=== PATIENT | female | born 2005 | race African-American/Black ===

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

== ENCOUNTER 2025-02-27 23:19 | Emergency (ER) | payer MEDICAID, SELFPAY ==
--- NOTE | 2025-02-27 23:24 | HMH.EDGENADL ---
Discharge Plan Disposition Patient Disposition: Home, Self-Care Prescriptions Prescriptions: No Action metformin 500 mg tablet 500 mg PO DAILY Qty: 30 2RF norelgestromin-ethin.estradiol [Zafemy] 150-35 mcg/24 hr patch weekly See Rx Instructions .ROUTE .COMPLEX Qty: 3 3RF Dose Instruction: APPLY 1 PATCH TOPICALLY ONCE A WEEK FOR 3 WEEKS OF A 4 WEEK CYCLE Rx Instructions: APPLY 1 PATCH TOPICALLY ONCE A WEEK FOR 3 WEEKS OF A 4 WEEK CYCLE ondansetron 4 mg tablet,disintegrating 4 mg PO Q6H PRN (Reason: nausea and vomiting) Qty: 10 0RF methocarbamol 750 mg tablet 750 mg PO Q6H PRN (Reason: spasm) Qty: 90 0RF lidocaine 5 % adhesive patch,medicated 1 patch topical DAILY Qty: 15 0RF Rx Instructions: leave on most painful area for up to 12 hrs Referrals Follow up/Referrals: Provider,Referral, MD [Primary Care Provider, Medical] - See instructions Activity Restrictions/Add. Instructions Additional Instructions/Restrictions: Please follow-up with your primary care provider. Please return to the emergency department if you develop any new or worsening symptoms or become concerned for your health. Clinical Impressions Clinical Impression: LAD (lymphadenopathy), cervical, Acute sore throat Instructions Patient Instructions: DI for Neck Pain Print Language Print Language: Malay Discharge ED Provider: Isac Colbert General Adult HPI General Chief complaint: Neck Pain/Injury Stated complaint: swollen neck glands Time Seen by Provider: 02/27/25 23:24 History of Present Illness HPI narrative: 19-year-old female with history of prediabetes on metformin presents for swelling in the neck. She reports that she feels like she has had some lymph nodes pop up bilaterally under her chin. She denies any sore throat, does report some runny nose. She has not had this happen before. She denies any fever at home, myalgias, fatigue or other significant infectious symptoms. Related Data Previous Rx's ?Medication ?Instructions ?Recorded ondansetron 4 mg disintegrating 4 mg PO Q6H PRN nausea and 12/22/24 tablet vomiting #10 tabs lidocaine 5 % topical patch 1 patch topical DAILY #15 ea 12/24/24 methocarbamol 750 mg tablet 750 mg PO Q6H PRN spasm #90 tabs 12/24/24 norelgestromin 150 mcg-e.estradiol See Rx Instructions .Route 01/18/25 35 mcg/24 hr weekly transderm .COMPLEX #3 patches patch (Zafemy) metformin 500 mg tablet 500 mg PO DAILY #30 tabs 01/23/25 Allergies Allergy/AdvReac Type Severity Reaction Status Date / Time budesonide (From Pulmicort) Allergy Intermediate Hives Verified 01/23/25 13:07 [facility] Disclaimer: The information contained in this section may have been updated after the patient was seen, as this information can be updated by other users. Medical History History of depression History of anxiety History of ADHD History of asthma Surgical History History of tonsillectomy and adenoidectomy Family History Other Asthma Diabetes Heart attack Hypertension Stroke Social History Smoking Status: Never smoker alcohol intake: never current occupational status: student Travel in the last 8 weeks?: None Have you lived/traveled outside [place] in past 30 days?: No Contact w/someone who lives/traveled outside US past 30 days?: No Exposure to someone with infectious disease in past 14 days?: No Do you have a fever (greater than 100.4 F or 38 C)?: No Have you tested positive for COVID-19?: No Exposed to someone with COVID-19 in past 14 days?: No Do you have a sore throat?: No Do you have a cough?: No Do you have any weakness?: No Do you have any diarrhea?: No Are you experiencing any unusual bleeding?: No Do you have any muscle aches/pain?: No Do you have any abdominal pain?: No Are you experiencing loss of taste or smell?: No ROS Obtained: Yes All systems reviewed & no additional complaints except as documented Physical Exam General General appearance: alert and in no apparent distress Head Head exam: atraumatic and normocephalic Eye Eye exam: Present normal appearance, PERRL and EOMI ENT ENT exam: Present normal external ear exam; Absent normal oropharynx (Mild tonsillar erythema and subtle exudate) Neck Neck exam: Present full ROM and lymphadenopathy (Shotty bilateral anterior cervical lymphadenopathy) Chest Chest inspection: Present normal inspection and symmetric chest wall rise; Absent tenderness Respiratory Respiratory exam: Present normal lung sounds bilaterally; Absent respiratory distress Cardiovascular Cardiovascular exam: Present regular rate and normal rhythm Abdominal Exam Abdominal exam: Present soft; Absent distention, tenderness or guarding Extremities Exam Extremities exam: Present normal inspection; Absent edema or joint swelling Back Exam Back exam: Present normal inspection; Absent tenderness Neurological Exam Neurological exam: Present alert and oriented X3; Absent motor sensory deficit Psychiatric Psychiatric exam: Present normal affect and normal mood Skin Skin exam: Present warm, dry and normal color Lymphatic Lymphatic Findings: no adenopathy Medical Decision Making Medical Records Medical records reviewed: Yes I reviewed the patient's medical records. Screening: Per USPSTF and CDC recommendations, given the prevalence of disease in our region, it is our hospital?s policy to screen for HIV and viral Hepatitis for all patients aged 18 and over and those with ongoing risk factors. Von Inquiry Pt receiving controlled substance: No Von was queried for this patient: No Vital Signs: 02/27/25 23:29 02/28/25 00:04 Temperature 98.9 F 98.5 F Temperature Source Oral Oral Pulse Rate 89 Pulse Rate [Right] 87 Respiratory Rate 17 16 Blood Pressure 106/67 L Blood Pressure [Right Arm] 158/89 H Blood Pressure Mean [Right Arm] 112 Blood Pressure Source Automatic Cuff Blood Pressure Source [Right Arm] Automatic Cuff Blood Pressure Position Sitting Blood Pressure Position [Right Arm] Sitting 02 Sat by Pulse Oximetry 97 Oxygen Delivery Method Room Air Room Air Lab Data Lab results reviewed: Yes I reviewed the patient's lab results. Lab Results 02/27/25 23:21: Group A Strep Rapid Negative Orders (Tests/Meds): ED MEDICATIONS Discontinued Medications Generic Name Dose Route Start Last Admin Trade Name Freq PRN Reason Stop Dose Admin Acetaminophen 1,000 mg 02/27/25 23:40 02/28/25 00:08 Acetaminophen 500mg Tab PO 02/27/25 23:41 1,000 mg ONCE ONE Administration ORDERS Category Date Time Status Strep Scrn Group A (Rapid) Stat Lab 02/27/25 23:21 Completed Strep Screen Confirmation Stat Micro 02/27/25 23:21 Received Medical Decision Narrative: 19-year-old female without significant past medical history presents for a few days of lumps in the anterior neck.. History was obtained via interactive discussion with patient. On arrival, patient is [afebrile, hemodynamically stable, satting appropriately, alert, oriented x4, GCS 15], moving all extremities spontaneously. Full physical exam performed and significant for mild shotty bilateral anterior cervical lymphadenopathy, faint tonsillar erythema and exudate. Differential includes but is not limited to URI, strep throat, lymphadenitis, thyroid abnormality. Patient was given Tylenol for symptomatic management and correction of underlying abnormalities. Workup initiated including strep swab. On re-evaluation, patient [remains afebrile, HD stable.] Laboratory workup independently interpreted by me and significant for negative strep swab. Blood work and imaging was considered, but deemed unnecessary due to likely reactive lymphadenopathy from viral illness. Patient was discharged in stable condition with return precautions.. Procedures Risk/Benefits of Procedure(s) Were Explained: Yes Critical Care Critical Care Time Critical Care Time: No
[2025-02-27 23:29] VITALS: BP 158/89; PULSE 87; RESP 17; TEMP 37.2; O2SAT 97; BMI 28.4
[2025-02-27 23:54] LABS: Strep Scrn Group A (Rapid) Negative (Negative)
[2025-02-28 00:04] VITALS: BP 106/67; PULSE 89; RESP 16; TEMP 36.9; O2SAT 98
[2025-02-28] MEDS: ACETAMINOPHEN 500MG TAB 1000 MG PO (00:08)
== END 2025-02-28 00:09 | disposition home or self-care (01) ==
PROVIDERS: Emergency Provider Emergency Medicine
DX: R59.0 Localized enlarged lymph nodes (principal); J02.9 Acute pharyngitis, unspecified
CPT/HCPCS: 87430; 99283

== ENCOUNTER 2025-06-16 16:04 | Emergency (ER) | payer MEDICAID, SELFPAY ==
[2025-06-16 16:06] VITALS: BP 128/70; PULSE 80; RESP 20; TEMP 37; O2SAT 100; BMI 45.1
--- OUTSIDE RECORDS SUMMARY | 2025-06-16 16:12 | XMS_ITS ---
Author Organization Unknown ENCOUNTERS Encounter Performer Location Date Diagnosis Diagnosis Status Pre Admit [facility] [address] [place] [address] [id number] Emergency [facility] [address] [place] [address] [id number] Emergency [facility] [address] [place] [address] [id number] ANDREI Pre Admit [facility] [address] [place] [address] [id number] Emergency [facility] [address] [place] [address] [id number] ANDREI Pre Admit [facility] [address] [place] [address] [id number] Pre Admit [facility] [address] [place] [address] [id number] Emergency [facility] [address] [place] [address] [id number] ANDREI Emergency [facility] [address] [place] [address] [id number] ANDREI Pre Admit [facility] [address] [place] [address] [id number] Pre Admit [facility] [address] [place] [address] [id number] Emergency [facility] [address] [place] [address] [id number] ANDREI Emergency [facility] [address] [place] [address] [id number] ANDREI Pre Admit Kelli Javi [facility] [address] [place] [address] [id number] Emergency [facility] [address] [place] [address] [id number] ANDREI Pre Admit [place] [address] [place] [address] [phone] *Note: Encounters from your own facility or health system may be excluded. Allergies, Adverse Reactions, Alerts Allergen Type Severity Identification Date budesonide drug allergy 3 [id number] Medications Name Date Quantity Days Supplied [facility] Number
--- OUTSIDE RECORDS SUMMARY | 2025-06-16 16:12 | XMS_ITS | Clinical Summary ---
Author Organization [facility] Address [address] [phone] Phone Care Team Providers Care Coal Deliverer Name Role Phone Samira Daigle APRN Primary Care Physician [phone] Conditions or Problems Problem Name Problem Code Onset Date Status Entry Date Provider Comment Standard Description Annotate Body mass index (BMI) pediatric; greater than or equal to 95th percentile for age Z68.54 (ICD-10-CM) 02/21 Active 02/21 Samira Daigle APRN Body mass index [BMI] pediatric, 95th percentile for age to less than 120% of the 95th percentile for age Body mass index (BMI) pediatric; greater than or equal to 95th percentile for age Z68.54 (ICD-10-CM) Correction Samira Daigle APRN Body mass index [BMI] pediatric, 95th percentile for age to less than 120% of the 95th percentile for age Snoring 56125613 (SNOMED CT) 02/21 Inactive 02/21 Samira Daigle APRN Snoring Asthma 090143814 (SNOMED CT) 02/21 Active 02/21 Samira Daigle APRN Asthma Preventive health care, adult 271958479 (SNOMED CT) 02/21 Inactive 02/21 Samira Daigle APRN Screening - health check Prediabetes 173173947 (SNOMED CT) 02/21 Active 02/21 Samira Daigle APRN Prediabetes Body mass index (BMI) pediatric; 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 Allergies, Adverse Reactions, Alerts Allergy Name Reaction Description Start Date Severity Statu s Provider PULMACORT Critical Active Fay morris MD Results Date Name Value Unit Range Flag Description Office Visit: 5 LABS ORDERED Test 07778 Laboratory tests ordered PREG TST URN negative beta HC G, urine, semiquantitative Lab Report: LIPID PANEL WITH REFLEX TO DIRECT LDL, COMPREHENSIVE METABOL ... HGBA1C 5.8 % <5.7 H Hemoglobin A1c/Hemoglobin, total in Blood - % SGPT (ALT) 10 U/L 5-32 N Alanine aminotransferase [Enzymatic activity/volume] in Serum or Plasma SGOT (AST) 13 U/L 12-32 N Aspartate aminotransferase [Enzymatic activity/volume] in Serum or Plasma ALK PHOS 62 U/L 36-128 N Alkaline jose sphatase [Enzymatic activity/volume] in Blood BILI TOTAL 0.4 mg/dL 0.2-1.1 N Bilirubin. total [Mass/volume] in Serum or Plasma A/G RATIO 1.4 (calc) 1.0-2.5 N Albumin/ Globulin [Mass Ratio] in Serum or Plasma GLOBULIN TOT 3.1 G/DL (CALC) g/dL 2.0-3.8 N Globulin [Mass/volume] in Serum ALBUMIN EOP 4.3 g/dL 3.6-5.1 N Albumin [Mass/volume] in Serum or Plasma by Electrophoresis PROTEIN, TOT 7.4 g/dL 6.3-8.2 N Protein [Mass/volume] in Serum or Plasma CALCIUM 9.4 mg/dL 8.9-10.4 N Calcium [Moles/volume] in Serum or Plasma CO2 26 mmol/L 20-32 N Carbon dioxid e, total [Moles/volume] in Venous blood CHLORIDE BLD 105 mmol/L 98-110 N chloride , blood POTASSIUM 4.6 mmol/L 3.8-5.1 N Potassium [Moles/volume] in Serum or Plasma SODIUM 137 mmol/L 135-146 N Sodium [Moles/volume] in Serum or Plasma BUN/CREAT SEE NOTE: (calc) 6-22 Urea nitrogen/Creatinine [Mass Ratio] in Serum or Plasma CREATININE 0.63 mg/dL 0.50-0.96 N Creatini ne [Mass/volume] in Serum or Plasma BUN 10 mg/dL 7-20 N Urea nitrogen [Mass/volume] in Serum or Plasma GLUCOSE SER 99 mg/dL 65-99 N Glucose [Mass/volume] in Serum or Plasma NON-HDL CHOL 175 MG/DL (CALC) mg/dL <120 H cholesterol, non-HDL, total CHOL/HDL % 5.1 (calc) <5.0 H cholest des/HDL ratio, serum, percent LDL 155 MG/DL (CALC) mg/dL <110 H Cholesterol in L DL [Mass/volume] in Serum or Plasma - mg/dL TRIGLYC TOT 92 mg/dL <90 H Triglycer gabi [Mass/volume] in Serum or Plasma - mg/dL HDL 43 mg/dL >45 L Cholesterol i n HDL [Mass/volume] in Serum or Plasma - mg/dL CHOLESTEROL 218 mg/dL <170 H Cholester ol [Mass/volume] in Serum or Plasma - mg/dL Plan of Care Type Date Detail Referral [facility], [address] [facility], [place], [address] Pending order T1 CMP Pending order T1 Lipid Panel Pending order T1 HGBA1c Pending order Test 8 1025 Pending order T1 G.C. Chlamydi a Pending Order exclud ed from report: Pending order Pelvic Ultrasoun d (non-) Pending Order exclud ed from report: Procedures Code Procedure Name Date Entry Date [facility]-[id number] Medication Reconciliation CPT-1159F Medication list docu mented in medical record CPT-1160F Review of all medica tions by a prescribing practitioner CPT-3074F Most recent systolic blood pressure <130 mm Hg CPT-3078F Most recent diastoli c blood pressure <80 mm Hg [facility]-[id number] Dietary management education/guidance/counseling [id number] Lifestyle education regarding diet 02/21 [id number] Never smoker [facility] 67967 T1 CMP [facility] 61126 T1 Lipid Panel [facility] 496 T1 HGBA1c [facility]-[id number] Medication Reconciliation CPT-3074F Most recent systolic blood pressure <130 mm Hg CPT-3078F Most recent diastoli c blood pressure <80 mm Hg CPT-1160F Review of all medica tions by a prescribing practitioner [facility] 57776 T1 G.C. Chlamydia PU Pelvic Ultrasound (non-) CPT-36625 Test 80853 [facility]-[id number] Never smoker Vital Signs Date Name Value Unit Description BMI (Body Mass Index) 46.23 kg/m2 Bod y Mass Index (Ratio) BP Diastolic 73 mm[Hg] blood pressu re, diastolic BP Systolic 108 mm[Hg] blood pressur e, systolic BSA (Body Surface Area) 2.68 b paulino surface area Height 70 [in_us] height E&M Height 177.8 cm height in cent imeters E&M Respiratory Rate 19 /min respirat ory rate E&M Weight Measured 321 [lb_av] weight E& M Weight Measured 321 [lb_av] weight E& M Weight Measured 145.91 kg weight in kilograms E&M Heart Rate 94 /min pulse rate Immunizations No information available. Advance Directives No information available.
--- OUTSIDE RECORDS SUMMARY | 2025-06-16 16:12 | XMS_ITS | Clinical Summary ---
Author Organization [facility] Address [address] [place] [address] Phone Care Team Providers Care Security And Compliance Analyst Name Role Phone Kayce Sanchez MD Primary Care Provider [phone] Allergies Active Allergy Reactions Criticality Noted Date Comments Budesonide Hives,Shortness Of Breath Medium Medications * This document contains information received from the source organization and may not represent a complete record from that organization. Nebulizer Accessories (A.I.R.S NEBULIZER REPLACEMENT) Kit by [facility] [place].(Non-Drug; Combo Route) route. use as directed 1 Kit 3 0 Active Inhalational Spacing Device [facility] [place] [facility] Spacer U*se every 4-6 hours as needed with Meter dosed inhaler 1 Device 7 Active ALBUTEROL INHL Inhale into the lungs. Active Diaper,Brief, Adult,Disposable [facility] USE DIRECTED INS BILLED 04 12/14/16 8 Active Benzoyl Peroxide (BENZAC AC) 10 % Top CleanserIndicati ons:Acne vulgaris Wash face daily 187 g 1 8 Active Additional Information Patient not taking.Reason: Therapy Completed, Reported on 07/14/2022 traZODone (DESYREL) 100 mg Oral Tablet Take 100 mg by mouth nightly. Active methylphenidate HCl (CONCERTA) 36 mg Oral Tablet Extended Rel 24 hr TK 2 TS PO QAM 0 9 Active omeprazole (PRILOSEC OTC) 20 mg Oral Tablet, Delayed Release (E.C.)Indication s:Abdominal pain in child Take 1 Tab by mouth daily. 30 Tab 2 0 Active Additional Information Patient not taking.Reason: Other, Reported on 08/26/2021 ondansetron (ZOFRAN-ODT) 4 mg Oral Tablet, Rapid Dissolve Take 1 Tab by mouth every 8 hours as needed for Nausea. 10 Tab 0 Active Additional Information Patient not taking.Reason: Other, Reported on 08/26/2021 albuterol (VENTOLIN HFA) 90 mcg/actuation Inhl HFA Aerosol InhalerIndicatio ns:History of asthma Inhale 6 Puffs into the lungs every 4 hours as needed. for wheezing or shortness of breath 18 g 2 3 Active SUMAtriptan (IMITREX) 25 mg Oral TabletIndication s:Migraine without aura and with status migrainosus, not intractable Take 1 PO. If not better in 2 hours, may take second dose. No more than 2 doses in 24 hours. 6 Tablet 3 Active Additional Information Patient not taking.Reason: Therapy Completed, Reported on 04/04/2023 tretinoin (RETIN-A) 0.025 % Top CreamIndications :Acne vulgaris Apply topically nightly. Apply topically nightly 20 g 1 3 Active ADDERALL XR 30 mg Oral Capsule, Sust. Release 24 hr Take 30 mg by mouth daily. 3 Active clonazePAM (KLONOPIN) 0.5 mg Oral Tablet Take 0.5 mg by mouth 3 times daily as needed. 3 Active tamsulosin (FLOMAX) 0.4 mg Oral Capsule Take 0.4 mg by mouth. 8 Active sertraline (ZOLOFT) 100 mg Oral Tablet 3 Active prazosin (MINIPRESS) 1 mg Oral Capsule 3 Active polyethylene glycol (GLYCOLAX) 17 gram/dose Oral Powder Take 17 g by mouth. 4 Active buPROPion (WELLBUTRIN SR) 150 mg Oral tablet sustained-releas e 12 hr 3 Active clotrimazole (LOTRIMIN) 1 % Top CreamIndications :Chronic eczematous otitis externa of both ears Apply small amount two times daily for two weeks 24 g 3 Active Active Problems Patient Care Coordination No te Formatting of this note migh t be different from the original. Registry updated HCC audit completed by Nancie Porter RN on 10/01/2022. Problem Noted Date Diagnosed Date ADD (attention deficit disorder) 07/22/2018 Increased sleeping 09/29/2017 Family history of sudden in father 016 Chest pain, non-cardiac 02/18/2016 Acanthosis nigricans 06/10/2015 Overview (06/10/2015): Seen [facility] Obesity due to excess calories 06/10/2015 Overview (06/10/2015): Seen at [facility] Dyslipidemia 06/10/2015 Overview (06/10/2015): Seen at [facility] Urge incontinence 10/12/2013 Migraine 09/08/2013 Overview (09/08/2013): MRI normal 08/2013 Eczema 10/10/2012 Nocturnal enuresis 04/22/2012 Asthma 09/16/2010 Resolved Problems Problem Noted Date Diagnosed Date Resolved Date Pneumonia 09/16/2010 08/17/2012 Immunizations Immunization Administration Dates Next Due DTaP 08/12/2009, 7,01/09/2006,11/09,2005 DTaP/IPV 08/12/2009 H1N1, Unspecified Formulation 03/25/2012 HPV 9 Valent 07/15/2017,07/03/2016 Hep B/HiB 07/16/2006,2005,2005 Hepatitis A, Unspecified Formulation 07/19/2007, 07/13/2006 IPV 03/10/2007,2005,2005 Influenza Vaccine, Unspecifi ed Formulation 03/30/2012 LAST MANUFACTURED 2010-Pneum ococcal Conjugate 7 Valent 03/10/2007,01/09/2006,2005,09/07 MMR 08/12/2009,07/16/2006 Meningococcal Conjugate 08/26/2021,07/03/2016 Tdap 07/03/2016 Varicella 08/12/2009,07/16/2006 Surgical History Surgery Date Site/Laterality Comments DENTAL SURGERY ADENOIDECTOMY Medical History Medical History Date Comments Behavioral disorder Asthma Heart murmur Eczema Pneumonia 09/16/2010 Incontinence Speech delay ADHD (attention deficit hyperactivity disorder) Anxiety Depression Family History Medical History Relation Name Comments High Blood Pressure Mother High Cholesterol Mother Other Sister eczema Relation Name Status Comments Mother Alive Sister Alive Social History Tobacco Use Types Packs/Day Years Used Date Smoking Tobacco: Never Smokeless Tobacco: Never Tobacco Cessation:Counseling Given: Not Answered Alcohol Use Standard Drinks/Week Comments No 0 (1 standard drink = 0.6 oz pur e alcohol) Sexually Active Control Partners Comments Never Comments No Sex and Gender Information Value Date Recorded Sex Assigned at Not on file Legal Sex Female 7:55 AM EDT Gender Identity Not on file Sexual Orientation Not on file Growth Chart Information Age Height Weight [id number] th Percentile BMI Percentile Head Circum Head Circum Percentile Date 18 years 180.3 cm (5' 11 ) 136.1 kg (300 lb) 99.43%* 2023 17 years 180.3 cm (5' 11 ) 136.3 kg (300 lb 6.4 oz) 99.50%* 2022 17 years 180.3 cm (5' 11 ) 137.7 kg (303 lb 9.6 oz) 99.58%* 2022 17 years 177.8 cm (5' 10 ) 134.9 kg (297 lb 6.4 oz) 99.66%* 2022 17 years 177.8 cm (5' 10 ) 133.8 kg (295 lb) 99.65%* 2022 17 years 175.3 cm (5' 9 ) 132.2 kg (291 lb 8 oz) 99.75%* 2022 16 years 177.8 cm (5' 10 ) 124.7 kg (275 lb) 99.27%* 2021 16 years 175.3 cm (5' 9 ) 129.3 kg (285 lb) 99.78%* 2021 15 years 172.7 cm (5' 8 ) 117.9 kg (260 lb) 99.68%* 2020 14 years 117.3 kg (258 lb 9.6 oz) 2019 14 years 116.4 kg (256 lb 9.6 oz) 2019 14 years 116.6 kg (257 lb) 2019 14 years 177.8 cm (5' 10 ) 99.8 kg (220 lb) 97.28%* 2019 14 years 175.3 cm (5' 9 ) 108.9 kg (240 lb) 99.17%* 2019 14 years 171.5 cm (5' 7.5 ) 106.4 kg (234 lb 9.6 oz) 99.38%* 2019 14 years 175.3 cm (5' 9 ) 107 kg (236 lb) 99.04%* 2019 13 years 107.3 kg (236 lb 9.6 oz) 2019 13 years 175.3 cm (5' 9 ) 108 kg (238 lb) 99.18%* 2018 13 years 107 kg (236 lb) 2018 13 years 108 kg (238 lb) 2018 13 years 107.6 kg (237 lb 3.2 oz) 2018 13 years 107.5 kg (237 lb) 2018 13 years 177.8 cm (5' 10 ) 96.2 kg (212 lb) 97.30%* 2018 13 years 105.7 kg (233 lb) 2018 13 years 172.7 cm (5' 8 ) 99.8 kg (220 lb) 98.82%* 2018 13 years 97.1 kg (214 lb) 2018 13 years 98.2 kg (216 lb 6.4 oz) 2018 13 years 170.7 cm (5' 7.2 ) 101.2 kg (223 lb 3.2 oz) 99.38%* 2018 12 years 98 kg (216 lb) 2017 12 years 172.7 cm (5' 8 ) 81.6 kg (180 lb) 96.10%* 2017 12 years 83.5 kg (184 lb) 2017 12 years 167.6 cm (5' 6 ) 80.7 kg (178 lb) 97.52%* 2017 12 years 169 cm (5' 6.54 ) 83.8 kg (184 lb 12.8 oz) 97.89%* 2017 11 years 170.2 cm (5' 7 ) 80.7 kg (178 lb) 96.99%* 2017 11 years 80.7 kg (178 lb) 2016 11 years 78.7 kg (173 lb 6.4 oz) 2016 11 years 73 kg (161 lb) 2016 11 years 160 cm (5' 3 ) 69.9 kg (154 lb) 97.32%* 2016 10 years 160 cm (5' 3 ) 67.8 kg (149 lb 6 oz) 96.91%* 2016 10 years 67.6 kg (149 lb) 2015 10 years 64.9 kg (143 lb) 2015 10 years 152.4 cm (5') 62.6 kg (138 lb) 97.73%* 2015 10 years 60.6 kg (133 lb 9.6 oz) 2015 10 years 59.9 kg (132 lb) 2015 9 years 59.4 kg (131 lb) 2014 9 years 57.6 kg (127 lb) 2014 9 years 151.1 cm (4' 11.5 ) 59.5 kg (131 lb 3.2 oz) 97.94%* 2014 9 years 54.2 kg (119 lb 6.4 oz) 2014 9 years 149.9 cm (4' 11 ) 55.1 kg (121 lb 6.4 oz) 97.23%* 2014 9 years 53.2 kg (117 lb 3.2 oz) 2014 8 years 44.7 kg (98 lb 8 oz) 2013 8 years 139.7 cm (4' 7 ) 44 kg (97 lb) 96.91%* 2013 7 years 38.6 kg (85 lb 3.2 oz) 2012 7 years 36.1 kg (79 lb 8 oz) 2012 6 years 33.8 kg (74 lb 9.6 oz) 2011 6 years 34 kg (75 lb) 2011 6 years 33.3 kg (73 lb 6 oz) 2011 6 years 33.1 kg (73 lb) 2011 6 years 32.7 kg (72 lb) 2011 6 years 29.6 kg (65 lb 4 oz) 2011 6 years 29.3 kg (64 lb 8 oz) 2011 6 years 28.6 kg (63 lb) 2011 6 years 125.7 cm (4' 1.5 ) 29.3 kg (64 lb 11.2 oz) 94.24%* 2011 5 years 28.3 kg (62 lb 6.4 oz) 2010 5 years 29 kg (63 lb 14.4 oz) 2010 5 years 22 kg (48 lb 6.4 oz) 2010 5 years 21.8 kg (48 lb 1 oz) 2010 5 years 118.1 cm (3' 10.5 ) 21.3 kg (47 lb 1 oz) 46.58%* 54.53%* 2010 4 years 21 kg (46 lb 4 oz) 2009 4 years 111.1 cm (3' 7.75 ) 19 kg (41 lb 12.8 oz) 51.83%* 52.10%* 2009 2 years 90.2 cm (2' 11.5 ) 13.2 kg (29 lb) 54.83%* 43.56%* 2007 * CDC (Girls, 2-20 Years) Last Filed Vital Signs Vital Sign Reading Time Taken Comments Blood Pressure 137/70 09/20/2023 4:05 PM EDT Pulse 65 09/20/2023 4:05 PM EDT Temperature 36.6 C (97.8 F) 09/20/2023 4:04 PM EDT Respiratory Rate 16 09/20/2023 2:21 PM EDT Oxygen Saturation 100% 09/20/2023 4:05 PM EDT Inhaled Oxygen Concentration - - Weight 136.1 kg (300 lb) 09/20/2023 4:05 PM EDT Height 180.3 cm (5' 11 ) 09/20/2023 4:05 PM EDT Body Mass Index 41.84 09/20/2023 4:05 PM EDT Body Mass Index Percentile 99.43% 09/20/2023 4:0 5 PM EDT Growth Chart: CDC (Girls, 2- 20 Years) Plan of Treatment Upcoming Encounters Date Type Department Care Team (Late st Contact Info) Description 07/23/2025 7:00 PM EST Appointment [facility] [address] [place] [id number] 08/07/2025 11:15 AM EST Office Visit [facility] Sleep Medicine [facility] [address] [facility] [address] [place] [address] Massimo Woody MD [address] [address] Health Maintenance Due Date Last Done Comments Meningococcal B Vaccine (1 o f 2 - Standard) 2021 Annual Wellness Exam 07/14/2023 07/14/2022 Pneumococcal Vaccine 0-49 (1 of 2 - PCV) 2024 03/10/2007, 01/09/2006, 2005, Additional history exists COVID-19 Vaccine (1 - 2024-2 6 season) 2025 Influenza Vaccine (#1) 2025 03/30/2012 DTaP/TDaP/Td (7 - Td or Tdap) 07/03/2026, 08/12/2009, 08/12/2009, Additional history exists Hepatitis B Vaccine Completed 07/16/2006, 2005, 2005 HPV Completed 07/15/2017, 07/03/2016 Insurance [facility] [id number] [facility] [place] [id number] [employer] [facility] [place] [address] [facility] [place] [address] [facility] [id number] [facility] Care Teams Security And Compliance Analyst Relationship Specialty Start Date End Date Kayce Sanchez MD [address] [facility] [address] [place] [address] PCP - General Pediatrics 05/06/11
--- NOTE | 2025-06-16 16:24 | CT_ITS ---
PROCEDURE INFORMATION: Exam: CT Lumbar Spine Without Contrast Exam date and time: 06/16/2025 4:48 PM Age: 19 years old Clinical indication: Low back pain; Additional info: Pain from lifting TECHNIQUE: Imaging protocol: Computed tomography of the lumbar spine without contrast. Radiation optimization: All CT scans at this facility use at least one of these dose optimization techniques: automated exposure control; mA and/or kV adjustment per patient size (includes targeted exams where dose is matched to clinical indication); or iterative reconstruction. COMPARISON: CT ANGIO ABDOMEN PELVIS 12/24/2024 7:10 PM FINDINGS: Bones/joints: Spine alignment is normal. No fracture or bone destruction. There is an 8 mm disc protrusion at L5-S1 image 1002/51. Soft tissues: Unremarkable. IMPRESSION: 1. Spine alignment is normal. 2. No fracture or bone destruction. 3. There is an 8 mm disc protrusion at L5-S1 image 1002/51. Recommend MRI to further delineate this finding.
[2025-06-16 16:28] VITALS: BP 128/74; PULSE 86; O2SAT 99
[2025-06-16 16:30] VITALS: BP 117/63; PULSE 82; O2SAT 97
--- NOTE | 2025-06-16 16:34 | ED_ITS ---
<Statement entered by Ej Aguirre MD - 06/17/25 11:18> Ej Aguirre MD: I was consulted by the JESSE, and we discussed the complexity of the problems being addressed. I approve the treatment and management plan for this patient's care in the emergency department, thus performing a substantive portion of the medical decision making. Discharge Plan Disposition Patient Disposition: Home, Self-Care Prescriptions Prescriptions: New methocarbamol 500 mg tablet 1,000 mg PO BID 14 Days Qty: 56 0RF ketorolac 10 mg tablet 10 mg PO Q8H PRN (Reason: pain) 5 Days Qty: 10 0RF No Action metformin 500 mg tablet 500 mg PO DAILY Qty: 30 2RF norelgestromin-ethin.estradiol [Zafemy] 150-35 mcg/24 hr patch weekly See Rx Instructions .ROUTE .COMPLEX Qty: 3 3RF Dose Instruction: APPLY 1 PATCH TOPICALLY ONCE A WEEK FOR 3 WEEKS OF A 4 WEEK CYCLE Rx Instructions: APPLY 1 PATCH TOPICALLY ONCE A WEEK FOR 3 WEEKS OF A 4 WEEK CYCLE ondansetron 4 mg tablet,disintegrating 4 mg PO Q6H PRN (Reason: nausea and vomiting) Qty: 10 0RF methocarbamol 750 mg tablet 750 mg PO Q6H PRN (Reason: spasm) Qty: 90 0RF lidocaine 5 % adhesive patch,medicated 1 patch topical DAILY Qty: 15 0RF Rx Instructions: leave on most painful area for up to 12 hrs Referrals Follow up/Referrals: [facility] [Other] - See instructions Provider,Referral, MD [Primary Care Provider, Medical] - See instructions Activity Restrictions/Add. Instructions Additional Instructions/Restrictions: Please call contact [facility] for an appointment with the spine doctor. You need to rest your back, no lifting pulling pushing tugging for the next 2 weeks. Please see your PCP as well. Use heat or ice. May take the ketorolac and Tylenol for pain. Clinical Impressions Clinical Impression: Strain of lumbar region Instructions Patient Instructions: DI for Low Back Pain Print Language Print Language: Arabic Discharge ED Provider: Ej Aguirre General Adult HPI General Chief complaint: Back Pain/Injury Stated complaint: lifted heavy object pain when breathing walking Time Seen by Provider: 06/16/25 16:18 Mode of Arrival: Ambulatory Source of Information: Patient and Relative Description of Symptoms (Recalled from ER Triage Doc. by RN): pt is here for back pain after a lifting injury while at work, pt states she is in contant pain during sitting stand or rest, it srats in mid back and goes down into both hips History of Present Illness HPI narrative: 19-year-old female presents to the ED today for complaint of hurting her back yesterday at work. She says this happened about 4:00 when she was trying to lift slushy containers. She says it hurts to do anything including stand, sit, walk or rest. She states that it hurts in her mid back and goes down to both hips. No numbness or tingling. No bowel or bladder changes. No other symptoms at this time. Related Data Previous Rx's ?Medication ?Instructions ?Recorded ondansetron 4 mg disintegrating 4 mg PO Q6H PRN nausea and 12/22/24 tablet vomiting #10 tabs lidocaine 5 % topical patch 1 patch topical DAILY #15 ea 12/24/24 methocarbamol 750 mg tablet 750 mg PO Q6H PRN spasm #9 0 tabs 12/24/24 norelgestromin 150 mcg-e.estradiol See Rx Instructions .Route 01/18/25 35 mcg/24 hr weekly transderm .COMPLEX #3 patches patch (Zafemy) metformin 500 mg tablet 500 mg PO DAILY #30 tabs 11/12 ketorolac 10 mg tablet 10 mg PO Q8H PRN pain 5 days #10 06/16/25 tabs methocarbamol 500 mg tablet 1,000 mg (2 x 500 mg) PO B ID 14 06/16/25 days #56 tabs Allergies Allergy/AdvReac Type Severity Reaction Status Date / Time budesonide (From Pulmicort) Allergy Intermediate Hives Verified 01/23/25 13:07 [facility] Disclaimer: The information contained in this section may have been updated after the patient was seen, as this information can be updated by other users. Medical History History of depression History of anxiety History of ADHD History of asthma Surgical History History of tonsillectomy and adenoidectomy Family History Other Asthma Diabetes Heart attack Hypertension Stroke Social History Smoking Status: Never smoker alcohol intake: never current occupational status: student Travel in the last 8 weeks?: None Have you lived/traveled outside US in past 30 days?: No Contact w/someone who lives/traveled outside US past 30 days?: No Exposure to someone with infectious disease in past 14 days?: No Do you have a fever (greater than 100.4 F or 38 C)?: No Have you tested positive for COVID-19?: No Exposed to someone with COVID-19 in past 14 days?: No Do you have a sore throat?: No Do you have a cough?: No Do you have any weakness?: No Do you have any diarrhea?: No Are you experiencing any unusual bleeding?: No Do you have any muscle aches/pain?: No Do you have any abdominal pain?: Yes Are you experiencing loss of taste or smell?: No ROS Obtained: Yes Systems reviewed as appropriate & no additional complaints except as documented Constitutional Constitutional: Reports as per HPI Physical Exam General General appearance: alert Head Head exam: normocephalic Eye Eye exam: Present EOMI ENT ENT exam: Present normal oropharynx and mucous membranes moist Neck Neck exam: Present full ROM and trachea midline Respiratory Respiratory exam: Present normal lung sounds bilaterally Cardiovascular Cardiovascular exam: Present regular rate, normal rhythm, +S1 and +S2 Abdominal Exam Abdominal exam: Present soft Extremities Exam Extremities exam: Present full ROM and normal capillary refill Back Exam Back exam: Present tenderness, muscle spasm and paraspinal tenderness (Lumbar) Neurological Exam Neurological exam: Present alert and oriented X3 Skin Skin exam: Present warm and dry Medical Decision Making Medical Records Screening: Per USPSTF and CDC recommendations, given the prevalence of disease in our region, it is our hospital?s policy to screen for HIV and viral Hepatitis for all patients aged 18 and over and those with ongoing risk factors. Von Inquiry Pt receiving controlled substance: No Von was queried for this patient: No Vital Signs: 06/16/25 16:06 06/16/25 16:28 06/16/25 16:30 Temperature 98.6 F Temperature Source Oral Pulse Rate 86 82 Pulse Rate [Left Radial] 80 Respiratory Rate 20 Blood Pressure 128/74 117/63 Blood Pressure [Right Arm] 128/70 Blood Pressure Mean Blood Pressure Mean [Right Arm] 89 02 Sat by Pulse Oximetry 100 99 97 Oxygen Delivery Method Room Air 06/16/25 18:01 Temperature Temperature Source Pulse Rate 75 Pulse Rate [Left Radial] Respiratory Rate 18 Blood Pressure 119/64 Blood Pressure [Right Arm] Blood Pressure Mean 79 Blood Pressure Mean [Right Arm] 02 Sat by Pulse Oximetry 100 Oxygen Delivery Method Lab Data Lab Results 06/16/25 16:20: Urine HCG, Qual Negative Orders (Tests/Meds): ED MEDICATIONS Discontinued Medications Generic Name Dose Route Start Last Admin Trade Name Tamq PRN Reason Stop Dose Admin Ketorolac Tromethamine 30 mg 06/16/25 16:44 06/16/25 16:53 Ketorolac 30mg/Ml Vial IM 06/16/25 16:45 30 mg ONCE ONE Administration Lidocaine 1 each 06/16/25 16:24 06/16/25 16:53 Lidocaine 5% Transdermal Patch TD 06/16/25 16:25 1 each ONCE ONE Administration Orphenadrine Citrate 60 mg 06/16/25 16:43 06/16/25 16:53 Orphenadrine Citrate 60mg/2ml Vial IM 06/16/25 16:44 60 mg ONCE ONE Administration ORDERS Category Date Time Status CT lumbar spine wo con Stat Cat Scan 06/16/25 16:24 Completed Urine , HCG Qual. Stat Lab 06/16/25 16:20 Completed Medical Decision Narrative: patient is a 19-year-old female presenting to the emergency department for evaluation of low back pain. Patient is hemodynamically stable and nontoxic- appearing upon arrival, afebrile. Differential diagnosis includes muscle spasms, muscle strain or sprain. Workup will be conducted with hematologic labs, specific imaging. Initial inventions include analgesics. Patient CT scan showed 8 mm discProtrusion at L5 and S1. I talked to patient about follow-up with Ortho and her PCP for physical therapy and further imaging. Discussed return precautions. Patient safe for discharge with follow-up Critical Care Critical Care Time Critical Care Time: No
[2025-06-16 16:36] LABS: Urine Pregnancy, HCG Qual. Negative (Negative)
[2025-06-16] MEDS: KETOROLAC 30MG/ML VIAL 30 MG IM (16:53)
[2025-06-16] MEDS: LIDOCAINE 5% TRANSDERMAL PATCH 1 EACH TD (16:53)
[2025-06-16] MEDS: ORPHENADRINE CITRATE 60MG/2ML VIAL 60 MG IM (16:53)
[2025-06-16 18:01] VITALS: BP 119/64; PULSE 75; RESP 18; O2SAT 100
[2025-06-16 18:31] VITALS: BP 117/45; PULSE 66; RESP 18; O2SAT 99
[2025-06-16 18:55] VITALS: BP 117/45; PULSE 64; RESP 16; TEMP 36.6; O2SAT 96
== END 2025-06-16 18:56 | disposition home or self-care (01) ==
PROVIDERS: Nurse Practitioner; Emergency Provider Student in an Organized Health Care Education/Training Program
DX: S39.012A Strain of muscle, fascia and tendon of lower back, initial encounter (principal); X50.0XXA Overexertion from strenuous movement or load, initial encounter
CPT/HCPCS: 72131; 81025; 96372; 99284; 99285; J1885; J2360